=== PATIENT | male | born 1995 | race African-American/Black ===

== ENCOUNTER 2019-12-03 03:24 | Emergency (ER) | payer BC ==
--- NOTE | 2019-12-03 03:56 | PDOC ---
Attending Attestation - Resident Resident Name: CarloselenGunner - ED Attending Attestation I have performed the following: I have examined & evaluated the patient, The case was reviewed & discussed with the resident, I agree w/resident's findings & plan - HPI HPI: 12/03/19 04:21 Pt comes with sore throat - Physicial Exam PE: 12/03/19 04:21 Normal ears and nose and eyes Throat + erythema and + exudates on the tonsils Heart and lungs normal Pt afebrile Pr is well hydrated Agree with resident exam - Medical Decision Making 12/03/19 04:22 LA Bicillin in the ER Pt will get decadron and he will wollow with PMD Discharge - Discharge Information Problems reviewed: Yes Clinical Impression/Diagnosis: Sore throat, Strep pharyngitis Condition: Improved Disposition: HOME - Follow up/Referral [place] [facility] [place] [facility] [place] Group] - Patient Discharge Instructions Patient Printed Discharge Instructions: Sore Throat, Viral Pharyngitis, Strep Throat Additional Instructions: You came into the ER with a sore throat. We did a strep test and gave you antibiotics for strep. You must return to the Emergency Department with any new complaints, if your symptoms persist and do not improve or if you develop any other new or worsening concerns. You can take over the counter Tylenol or Advil as needed for pain. Take as directed on the package insert. Do not exceed the recommended dosage. As discussed, please call to follow up with your Primary Care physician in 1-2 days to discuss what happened to you in the emergency room, and make sure you are being looked after and taken care of. Your emergency room visit is not complete without this follow up appointment. Please read the attached handouts for further information about your ER visit and what you should do moving forward. Thank you for coming to the [facility]. We hope you feel better soon! Print Language: KOREAN - Post Discharge Activity Work/Back to School Note: Back to Work
--- NOTE | 2019-12-03 04:07 | PDOC ---
History of Present Illness - General Chief Complaint: Sore Throat Stated Complaint: SORE THROAT Time Seen by Provider: 12/03/19 03:54 History Source: Patient Exam Limitations: No Limitations - History of Present Illness Initial Comments: Andriy Childress is a 24 yo M who denies having any pmh who presents with 2 days of a worsening sore throat. He states he has taken advil for the pain which has mildly helped. He has also taken theraflu (acetaminophen, diphenhydramine, benadryl) and chloraseptic (Menthol, benzocaine analgesic losenge) but bc the throat discomfort persisted he came into the ER for evaluation. Denies fevers, chills, nausea, vomiting, decreased PO intake, difficulty swallowing, chest pain, SOB, difficulty breathing. PCP: None Allergies: NKA, NKDA Social Hx: Denies smoking, drinking, or other substance abuse PSH: None reported Past History - Medical History Allergies/Adverse Reactions: Allergies Allergy/AdvReac Type Severity Reaction Status Date / Time No Known Allergies Allergy Verified 12/03/19 04:14 Home Medications: Ambulatory Orders NK [No Known Home Medication] 08/08/15 - Psycho-Social/Smoking History Smoking History: Never smoked Review of Systems - Review of Systems Able to Perform ROS?: Yes Comments:: CONSTITUTIONAL: Absent: fever, no chills, no fatigue EYES: Absent: visual changes ENT: Present: Sore throat Absent: ear pain CARDIOVASCULAR: Absent: chest pain, no palpitations RESPIRATORY: Absent: cough, no SOB GI: Absent: abdominal pain, no nausea, no vomiting, no constipation, no diarrhea GENITOURINARY: Absent: dysuria, no frequency, no hematuria MUSKULOSKELETAL: Absent: back pain, no arthralgia, no myalgia SKIN: Absent: rash NEURO: Absent: headache *Physical Exam - Physical Exam GENERAL: Well-appearing, well-nourished. No apparent distress. THROAT: The oropharynx is erythematous, there are posterior oropharyngeal petechiae. There is no exudate. There is left sided tender adenopathy. HEEN: Normocephalic, atraumatic. PERRL, EOM intact. CARDIOVASCULAR: Normal S1, S2. Regular rate and rhythm. PULMONARY: No evidence of respiratory distress. Lungs clear to auscultation bilaterally. No wheezing, rales or rhonchi. ABDOMEN: Soft, non-distended, non-tender. EXTREMITIES: Normal ROM in all four extremities. No gross deformities. SKIN: Warm, dry. No rash NEUROLOGICAL: No focal neurological deficits. Medical Decision Making - Medical Decision Making Andriy Childress is a 24 yo M who denies having any pmh who presents with 2 days of a worsening sore throat. He states he has taken advil for the pain which has mildly helped. He has also taken theraflu (acetaminophen, diphenhydramine, benadryl) and chloraseptic (Menthol, benzocaine analgesic losenge) but bc the throat discomfort persisted he came into the ER for evaluation. Vital Signs Temp Pulse Resp BP Pulse Ox 98.9 F 86 20 150/80 100 12/03/19 04:13 12/03/19 04:13 12/03/19 04:13 12/03/19 04:13 12/03/19 04:13 DDx IBNLT: Strep, mono, covid Plan: rapid strep test, dex for swelling/comfort, bicillin for strep Dispo: Home w pcp mo and magdalena I discussed the physical exam findings, ancillary test results and final diagnoses with the patient. I answered all of the patient's questions. The patient was satisfied with the care received and felt comfortable with the discharge plan and treatment plan. The patient will call their primary care physician within 24 hours to arrange follow-up and will return to the Emergency Department with any new, persistent or worsening symptoms. Please note, this clinical encounter is taking place during a federal and state health care emergency attributable to the novel Seals Virus pandemic. The [place] of the Department of Health and Human Services has declared, pursuant to the Public Health Service Act 319F-3 (42 U.S.C. 247d-6d), that a covered persons activities related to medical countermeasures against COVID-19 will be immune from liability under Federal and State law. Discharge - Discharge Information Problems reviewed: Yes Clinical Impression/Diagnosis: Sore throat Condition: Improved Disposition: HOME - Admission No - Follow up/Referral Referrals: [facility] [place] [facility] [place] [Provider Group] - Patient Discharge Instructions Patient Printed Discharge Instructions: Sore Throat, Viral Pharyngitis, Strep Throat Additional Instructions: You came into the ER with a sore throat. We did a strep test and gave you antibiotics for strep. You must return to the Emergency Department with any new complaints, if your symptoms persist and do not improve or if you develop any other new or worsening concerns. You can take over the counter Tylenol or Advil as needed for pain. Take as directed on the package insert. Do not exceed the recommended dosage. As discussed, please call to follow up with your Primary Care physician in 1-2 days to discuss what happened to you in the emergency room, and make sure you a re being looked after and taken care of. Your emergency room visit is not complete without this follow up appointment. Please read the attached handouts for further information about your ER visit a nd what you should do moving forward. Thank you for coming to the [facility]. We hope you feel better soon! Print Language: SENEGALESE - Post Discharge Activity
[2019-12-03] MEDS ORDERED: DEXAMETHASONE 4 MG TABLET (FP) PO ONE (04:09)
[2019-12-03 04:14] VITALS: TEMP 98.9; BMI 34.4
[2019-12-03 04:18] VITALS: BP 124/55; PULSE 58
[2019-12-03] MEDS ORDERED: PENICILLIN G BENZATHINE 1,200,000 UNIT/2 ML PFS IM ONE ×2 (04:18→04:33)
[2019-12-03] MEDS ORDERED: DEXAMETHASONE 4 MG TABLET (FP) ONE (04:24)
== END 2019-12-03 05:19 | disposition home or self-care (01) ==
LOC: JER 03:24
DX: J02.9 Acute pharyngitis, unspecified (principal)
CPT/HCPCS: 87070; 87880; 99284-25